=== PATIENT | female | born 1970 | race Caucasian/White ===

== ENCOUNTER 2017-08-10 10:45 | Emergency (ER) | payer MEDICAID, OTHER ==
[~2017-08-10] VITALS: Wt 72.0 kg
[~2017-08-10 10:45] MED LIST: ETOMIDATE 20 MG INJ ONE; LIDOCAINE 100 MG SYRINGE ONE; ROCURONIUM 50 MG INJ ONE
[2017-08-10] MEDS ORDERED: SOD CHLORIDE 0.9% 500 ML IV STA (11:13)
[2017-08-10 11:56] LABS: BASOPHIL # 0.1 10^3/ul (0.0-0.1); BASOPHILS % 0.8 % (0.0-2.0); EOSINOPHILS % 0.4 % (0.0-7.0); HEMATOCRIT 39.1 % (37.0-47.0); HEMOGLOBIN 12.6 g/dl (12.0-16.0); LYMPHOCYTES # 0.7 10^3/ul (0.8-2.9); LYMPHOCYTES % 9.1 % (15.0-51.0); MEAN CORPUSCULAR HEMOGLOBIN 31.1 pg (29.0-33.0); MEAN CORPUSCULAR HGB CONC 32.2 g/dl (32.0-37.0); MEAN CORPUSCULAR VOLUME 96.5 fl (82.0-101.0); MEAN PLATELET VOLUME 10.9 fl (7.4-10.4); MONOCYTE # 0.8 10^3/ul (0.3-0.9); MONOCYTES % 10.4 % (0.0-11.0); NEUTROPHIL # 6.1 10^3/ul (1.6-7.5); NEUTROPHILS % 78.8 % (39.0-77.0); PLATELET COUNT 191 10^3/UL (140-415); RED BLOOD COUNT 4.05 10^6/ul (4.20-5.40); RED CELL DISTRIBUTION WIDTH 17.5 % (11.5-14.5); WHITE BLOOD COUNT 7.8 10^3/ul (4.8-10.8)
[2017-08-10 11:57] LABS: ALANINE AMINOTRANSFERASE 43 IU/L (13-69); ALBUMIN 3.4 g/dl (3.3-4.9); ALBUMIN/GLOBULIN RATIO 0.82; ALKALINE PHOSPHATASE 227 IU/L (42-121); ANION GAP 13 (8-16); ASPARTATE AMINO TRANSFERASE 64 IU/L (15-46); BILIRUBIN,INDIRECT 1.5 mg/dl (0-1.1); BILIRUBIN,TOTAL 1.5 mg/dl (0.2-1.3); BLOOD UREA NITROGEN 9 mg/dl (7-20); CALCIUM 9.2 mg/dl (8.4-10.2); CARBON DIOXIDE 29 mmol/L (21-31); CHLORIDE 99 mmol/L (97-110); CREATININE 0.96 mg/dl (0.44-1.00); GLUCOSE 83 mg/dl (70-220); POTASSIUM 3.7 mmol/L (3.5-5.1); SODIUM 137 mmol/L (135-144); TOTAL PROTEIN 7.5 g/dl (6.1-8.1)
[2017-08-10 12:09] LABS: TROPONIN-I 0.013 ng/ml (0.00-0.12)
[2017-08-10 12:12] LABS: ACETAMINOPHEN < 10.0 ug/ml (10.0-30.0); SALICYLATE < 1.0 mg/dl (5.0-30.0)
[2017-08-10 12:13] LABS: T3 UPTAKE 39.8 % (23.5-40.5)
[2017-08-10 12:25] LABS: ETHANOL < 10.0 mg/dl
[2017-08-10] MEDS ORDERED: SOD CHLORIDE 0.9% 1,000 ML IV ONE ×3 (12:30→17:30)
[2017-08-10 13:04] LABS: OPIATES Negative (NEGATIVE)
[2017-08-10 13:06] LABS: ADD UMIC YES; UR ASCORBIC ACID 40 mg/dL (NEGATIVE); UR BACTERIA FEW /HPF (NONE SEEN); UR BILIRUBIN (Dip) NEGATIVE (NEGATIVE); UR BLOOD (Dip) NEGATIVE (NEGATIVE); UR CLARITY SLIGHTLY CLOUDY (CLEAR); UR COLOR AMBER (YELLOW); UR GLUCOSE (Dip) NEGATIVE (NEGATIVE); UR KETONES (Dip) NEGATIVE (NEGATIVE); UR LEUKOCYTE ESTERASE (Dip) NEGATIVE Leu/ul (NEGATIVE); UR MUCUS MANY /HPF (NONE SEEN); UR NITRITE (Dip) NEGATIVE (NEGATIVE); UR RBC 2 /HPF (0-5); UR SQUAMOUS EPITHELIAL CELL FEW /HPF (FEW); UR TOTAL PROTEIN (Dip) 1+ mg/dl (NEGATIVE); UR UROBILINOGEN (Dip) 2+ mg/dL (NEGATIVE)
[2017-08-10 13:11] LABS: BARBITURATES Negative (NEGATIVE); BENZODIAZEPINES Negative (NEGATIVE); CANNABINOIDS Negative (NEGATIVE); COCAINE Negative (NEGATIVE)
[2017-08-10] MEDS ORDERED: SOD CHLORIDE 0.9% 1,000 ML IV SCH (15:23)
[2017-08-10] MEDS ORDERED: HYDROCODONE/APAP (5/325) TAB PO PRN (15:30)
[2017-08-10] MEDS ORDERED: NITROGLYCERIN (SL) 0.4 MG TAB SL PRN (15:30)
[2017-08-10] MEDS ORDERED: ONDANSETRON 4 MG INJ IV PRN ×2 (15:30→16:00)
[2017-08-10] MEDS ORDERED: NA PHOSPHATE/BIPHOS 133 ML ENEMA PR PRN (15:30)
[2017-08-10] MEDS ORDERED: DOCUSATE SODIUM 100 MG CAP PO PRN (15:30)
[2017-08-10] MEDS ORDERED: NACL 0.9% 3 ML SYG IV SCH (15:30)
[2017-08-10] MEDS ORDERED: ACETAMINOPHEN 325 MG TAB PO PRN ×2 (15:30)
[2017-08-10] MEDS ORDERED: morphine 2 MG INJ IV PRN (15:30)
[2017-08-10] MEDS ORDERED: hydrALAzine 20 MG INJ IV PRN (15:30)
[2017-08-10] MEDS ORDERED: MAGNESIUM HYDROXIDE 30ML CUP PO PRN (15:30)
[2017-08-10] MEDS ORDERED: ALBUTEROL/IPRATROPIUM (NEB) 3 ML AMP HHN PRN (15:30)
[2017-08-10] MEDS ORDERED: LORAZEPAM 2 MG INJ ONE (15:34)
[2017-08-10] MEDS ORDERED: LORAZEPAM 2 MG INJ IV ONE (16:00)
[2017-08-10] MEDS ORDERED: LEVOFLOXACIN 750MG/D5W (PMX) 150 ML IVPB SCH (16:00)
[2017-08-10] MEDS ORDERED: LEVETIRACETAM 1000 MG (PMX) 100 ML IVPB SCH (16:00)
[2017-08-10] MEDS ORDERED: LEVETIRACETAM 500 MG (PMX) 100 ML IVPB ONE (16:00)
--- NOTE | 2017-08-10 16:24 | RADRPT ---
PROCEDURE: CT Brain without contrast. CLINICAL INDICATION: Seizure, head injury TECHNIQUE: Routine CT scan of the brain was performed on a high resolution multi detector scanner without intravenous contrast. One or more of the following dose reduction techniques were used: Auto mated exposure control; Adjustment of the mA and/or kV according to patient size; Use of iterative r econstruction technique. CTDI = 44 mGy. DLP = 630 mGy-cm. COMPARISON: CT brain 10/03/2009 FINDINGS: Hemorrhage: Acute epidural hematoma is present overlying the left frontal and parietal lobes measuri ng up to 12 mm in thickness. This produces minimal local mass effect on the underlying brain parench yma without midline shift or herniation. Acute ischemic changes: No evidence of acute ischemic changes. Parenchymal volume: Within normal limits for age. Ventricular system: Concordant with parenchymal volume. Chronic changes: Mild chronic-appearing microvascular ischemic changes of the supratentorial white m atter. Atherosclerotic calcifications of the cavernous portions of both internal carotid arteries ar e present. Extracranial soft tissues: Unremarkable. Calvarium: No fractures. Paranasal sinuses: Visualized paranasal sinuses are clear. Mastoid air cells: Visualized mastoid air cells are clear. IMPRESSION: Acute epidural hematoma overlying the left frontal and parietal lobes measuring up to 12 mm in thick ness. This produces minimal local mass effect on the underlying brain parenchyma without midline sh ift or herniation. Mild chronic-appearing microvascular ischemic changes of the supratentorial white matter are unchang ed. Results were discussed with [place] Muñ[place] by telephone 08/10/2017 4:19:[address] Ortiz cespedes RPTAT: AADD .Ortiz Morley MD, MD Date Time Electronically viewed and signed by .Ortiz Morley MD, on 08/10/2017 16:23 .B/
[2017-08-10] MEDS ORDERED: LORAZEPAM 2 MG INJ IV PRN ×2 (16:30→22:00)
--- NOTE | 2017-08-10 16:58 | HP ---
DATE OF ADMISSION: 08/10/2017 CHIEF COMPLAINT: Altered mental status. Seizure. HISTORY OF PRESENT ILLNESS: This is a 47-year-old female with a past medical history cirrhosis, noncompliant with lactulose medications for the last 2-3 days, history of anxiety and prior drug abuse, who presented from home after experiencing seizure activity per who appeared to witness at least 2 seizures at home. Each seizure lasted about a minute. When he found her after the first one, she was found face down in the bedroom I believe with blood coming out of her mouth, most likely secondary to tongue biting. She had some confusion afterwards. Her states that there was also an empty bottle of Neurontin found next to the bed as well. No prior history of any seizures. No complaints of any diarrhea or constipation, nausea, vomiting, fever or chills. No upper or lower GI bleeding. Again, she had 2 more seizures at home as well; so a total of 3 and 1 in the ER today. She also had seizure activity as well. When she came to the ER today, she was found with a normal white blood cell count. Lactic acid was elevated at 5.5. She had altered mental status and confusion. PAST MEDICAL HISTORY: Above. ALLERGIES: PENICILLIN. MEDICATIONS: Apparently she is taking lactulose at home but has not been taking it for the last 2-3 days per her . PAST SURGICAL HISTORY: None. FAMILY HISTORY: Unknown. SOCIAL HISTORY: Positive for amphetamines in her system, and also she smokes cigarettes, unable to fully quantify how much. She denies alcohol use. PHYSICAL EXAMINATION: VITAL SIGNS: Today, T-max 98.8, pulse 84, respirations 20, blood pressure 120/54, and sating at 97 percent on room air. GENERAL: The patient is lying in bed. Skin appears to be jaundiced. She has minimal responsiveness to sternal rub. Some dry blood noted around the mouth. NECK: Supple. No thyromegaly. HEENT: Unable to fully assess. LUNGS: Clear to auscultation bilaterally. CARDIAC: S1, S2 heard. No rubs, gallops. ABDOMEN: Soft, nontender, nondistended. Normal bowel sounds. No rebound or guarding. MUSCULOSKELETAL: No lower extremity edema bilaterally. Neurologic unable to fully assess. Negative musculoskeletal. No lower extremity edema bilaterally. LABS: Comprehensive metabolic panel shows a total bilirubin of 1.5. AST is a little high at 64. Troponins negative x1. The rest of the comprehensive metabolic panel is normal. Thyroid panel appears normal. Lactic acid is 5.5. U tox is positive for amphetamine. UA shows negative nitrites, negative leukocyte esterase, few bacteria. CBC is normal. Head CT is pending. ASSESSMENT/PLAN: This is a 47-year-old female coming in with altered mental status and seizure activity and signs of possible Neurontin versus phentermine overdose. 1. Seizures and altered mental status. For now because the patient could be altered from a combination of seizure activity and also not taking her lactulose, put her in intensive care unit at least for a few hours and monitor her. Check ammonia level. Check TSH, A1c, and lipid panel. Put her on Keppra intravenously and also Ativan p.r.n. for any seizure activity. Do neuro checks as well. Get a neurology consult and get an EEG as well. Also, give her aggressive intravenous fluid hydration. 2. History of cirrhosis. Again, for now, check an ammonia level. Put her back on the lactulose medications when she awakes. 3. Possible amphetamine or Neurontin toxicity. Again, monitor for signs of withdrawal. She is having positive seizures that could be secondary to the overdose of these medications. Again, neuro checks and intravenous fluids aggressively. 4. Gastrointestinal prophylaxis. She will be on a proton pump inhibitor. 5. Deep vein thrombosis prophylaxis, sequential compression devices. Dictated By: Tulio Kruger MD /kendall/mariana /Document#: [id number]
[2017-08-10] MEDS ORDERED: MANNITOL 20% 500 ML IV ONE (17:00)
[2017-08-10] MEDS ORDERED: PROPOFOL 100 ML ONE (17:16)
[2017-08-10] MEDS ORDERED: PROPOFOL 100 ML IV ONE (17:30)
[2017-08-10] MEDS ORDERED: LACTULOSE 30ML CUP PO SCH (18:00)
--- NOTE | 2017-08-10 18:33 | ERA ---
ER Documentation Chief Complaint Date/Time DATE: 08/10/17 TIME: 18:20 Chief Complaint ALTERED MENTAL STATUS FROM POSSIBLE OVERDOSE UNK MED. NO TRAUMA POSS SZ HPI This 47-year-old female is brought in by paramedics for being found altered. There was drug paraphernalia including methamphetamine items. There was also an empty bottle of gabapentin near the patient. Go to the was not present there has been a questional history of a seizure. Patient does not have a seizure disorder. No mention of suicidal ideations or trauma. Patient herself is unable to provide adequate history but does answer some questions. ROS Unobtainable secondary to clinical condition Medications Home Meds No Active Prescriptions or Reported Meds Allergies Allergies: Coded Allergies: Penicillins (Verified Allergy, Unknown, 11/13/08) PMhx/Soc Medical and Surgical Hx: Unable to obtain History of Surgery: Yes (HERNIA) Anesthesia Reaction: No Hx Neurological Disorder: No Hx Cardiac Disorders: No Hx Psychiatric Problems: No Hx Miscellaneous Medical Probl: No Hx Alcohol Use: Yes Hx Substance Use: Yes Hx Tobacco Use: Yes Smoking Status: Current every day smoker Physical Exam Vitals Vital Signs Date Time Temp Pulse Resp B/P Pulse Ox O2 Delivery O2 Flow Rate FiO2 08/10/17 17:30 83 22 100 100 08/10/17 16:32 98.8 86 20 128/67 93 Room Air 08/10/17 15:30 98.8 86 20 127/61 93 Room Air 08/10/17 14:22 98.8 84 20 128/54 93 Room Air 08/10/17 13:00 98.8 88 20 136/57 97 08/10/17 10:51 98.8 84 20 130/72 97 Physical Exam Const: [] Mild distress, Head: Atraumatic, Eyes: Normal Conjunctiva EOMI, PERRLA ENT: Normal External Ears, Nose and Mouth. Her membranes without any blood or fluid. Neck: Full range of motion.. No deformities. Resp: Clear to auscultation bilaterally Cardio: Regular tachycardia, no murmurs Abd: Soft, obvious tenderness, r, non distended. Normal bowel sounds Skin: No petechiae or rashes Back: No midline or flank tenderness Ext: No cyanosis, or edema Neur: Awake and alert, answering some questions, moves all 4 extremities purposefully. Psych: Euphoric and mildly agitated, speaking consistently, most of her speech is irrelevant but not nonsensical, Result Diagram: 08/10/17 1125 08/10/17 1125 Results 24 hrs Laboratory Tests Test 08/10/17 11:25 08/10/17 12:25 White Blood Count 7.810^3/ul Red Blood Count 4.0510^6/ul Hemoglobin 12.6g/dl Hematocrit 39.1% Mean Corpuscular Volume 96.5fl Mean Corpuscular Hemoglobin 31.1pg Mean Corpuscular Hemoglobin Concent 32.2g/dl Red Cell Distribution Width 17.5% Platelet Count 82261^3/UL Mean Platelet Volume 10.9fl Neutrophils % 78.8% Lymphocytes % 9.1% Monocytes % 10.4% Eosinophils % 0.4% Basophils % 0.8% Nucleated Red Blood Cells % 0.0/100WBC Neutrophils # 6.110^3/ul Lymphocytes # 0.710^3/ul Monocytes # 0.810^3/ul Eosinophils # 0.010^3/ul Basophils # 0.110^3/ul Nucleated Red Blood Cells # 0.010^3/ul Sodium Level 137mmol/L Potassium Level 3.7mmol/L Chloride Level 99mmol/L Carbon Dioxide Level 29mmol/L Anion Gap 13 Blood Urea Nitrogen 9mg/dl Creatinine 0.96mg/dl Glucose Level 83mg/dl Lactic Acid Level 5.5mmol/L Calcium Level 9.2mg/dl Total Bilirubin 1.5mg/dl Direct Bilirubin 0.00mg/dl Indirect Bilirubin 1.5mg/dl Aspartate Amino Transf (AST/SGOT) 64IU/L Alanine Aminotransferase (ALT/SGPT) 43IU/L Alkaline Phosphatase 227IU/L Troponin I 0.013ng/ml Total Protein 7.5g/dl Albumin 3.4g/dl Globulin 4.10g/dl Albumin/Globulin Ratio 0.82 Free Thyroxine 1.30ng/dl Free Thyroxine Index 2.99ug/ml Thyroxine (T4) 7.5ug/dl Triiodothyronine (T3) Uptake 39.8% Salicylates Level < 1.0mg/dl Acetaminophen Level < 10.0ug/ml Ethyl Alcohol Level < 10.0mg/dl Urine Color KAREN Urine Clarity SLIGHTLY CLOUDY Urine pH 6.0 Urine Specific [place] 1.020 Urine Ketones NEGATIVEmg/dL Urine Nitrite NEGATIVEmg/dL Urine Bilirubin NEGATIVEmg/dL Urine Urobilinogen 2+mg/dL Urine Leukocyte Esterase NEGATIVELeu/ul Urine Microscopic RBC 2/HPF Urine Microscopic WBC 6/HPF Urine Squamous Epithelial Cells FEW/HPF Urine Bacteria FEW/HPF Urine Mucus MANY/HPF Urine Hemoglobin NEGATIVEmg/dL Urine Glucose NEGATIVEmg/dL Urine Total Protein 1+mg/dl Urine Opiates Screen Negative Urine Barbiturates Negative Urine Amphetamines Screen POSITIVE Urine Benzodiazepines Screen Negative Urine Cocaine Screen Negative Urine Cannabinoids Negative Current Medications Medications (Trade) Dose Ordered Sig/[place] Route PRN Reason Start Time Stop Time Status Last Admin Dose Admin Sodium Chloride 500 ml @ 500 mls/hr Q1H STAT IV 08/10/17 11:13 08/10/17 12:12 DC 08/10/17 11:31 Sodium Chloride 1,000 ml @ 1,000 mls/hr Q1H ONCE IV 08/10/17 12:30 08/10/17 13:29 DC 08/10/17 13:00 Sodium Chloride (NS) 1,000 ml @ 1,000 mls/hr Q1H ONCE IV 08/10/17 12:30 08/10/17 13:29 DC 08/10/17 13:01 Ondansetron HCl (Zofran Inj) 4 mg BRIDGE ORDER PRN IV NAUSEA AND/OR VOMITING 08/10/17 15:30 08/10/17 15:44 DC Acetaminophen (Tylenol Tab) 650 mg ER BRIDGE PRN PO MILD PAIN/FEVER 08/10/17 15:30 08/10/17 15:44 DC IV Flush (NS 3 ml) 3 ml PER PROTOCOL IV 08/10/17 15:30 Ondansetron HCl (Zofran Inj) 4 mg Q6H PRN IV NAUSEA AND/OR VOMITING 08/10/17 16:00 Acetaminophen (Tylenol Tab) 650 mg Q6H PRN PO PAIN LEVEL 1-3 OR FEVER 08/10/17 15:30 Acetaminophen/ Hydrocodone Bitart (Basehor (5/325)) 1 tab Q6H PRN PO MODERATE PAIN LEVEL 4-6 08/10/17 15:30 Morphine Sulfate (morphine) 2 mg Q4H PRN IV SEVERE PAIN LEVEL 7-10 08/10/17 15:30 Docusate Sodium (Colace) 100 mg Q12H PRN PO CONSTIPATION 08/10/17 15:30 Magnesium Hydroxide (Milk Of Mag) 30 ml DAILY PRN PO CONSTIPATION 08/10/17 15:30 Sodium Biphosphate/ Sodium Phosphate (Fleet Enema) 133 ml DAILY PRN TN CONSTIPATION 08/10/17 15:30 Pantoprazole (Protonix Tab) 40 mg DAILY@06 PO 08/11/17 06:00 Heparin Sodium (Porcine) (Heparin (5000 Units/0.5 ml)) 5,000 unit Q12 SC 08/10/17 21:00 08/10/17 21:00 DC Lorazepam 0.5 mg 0.5 mg Q6H PRN IV ANXIETY 08/10/17 22:00 08/10/17 22:00 DC Sodium Chloride (NS) 1,000 ml @ 150 mls/hr Q6H40M IV 08/10/17 15:23 08/10/17 16:51 Albuterol/ Ipratropium 3 ml 3 ml Q4H RESP THERAPY PRN HHN SHORTNESS OF BREATH 08/10/17 15:30 Levofloxacin/ Dextrose (Levaquin 750 Mg/ D5W 150 ml (Pmx)) 150 ml @ 100 mls/hr DAILY IVPB 08/10/17 16:00 08/10/17 16:50 Hydralazine HCl (Apresoline) 10 mg Q6H PRN IV ELEVATED BLOOD PRESSURE 08/10/17 15:30 Nitroglycerin 1 tab 1 tab Q5M PRN SL ANGINA 08/10/17 15:30 Levetiracetam (Keppra 1,000mg/ 100ml (Pmx)) 100 ml @ 400 mls/hr Q12 IVPB 08/10/17 16:00 08/10/17 16:49 Lorazepam (Ativan) 2 mg STK-MED ONCE .ROUTE 08/10/17 15:34 08/10/17 15:35 DC Lorazepam 2 mg 2 mg ONCE ONCE IV 08/10/17 16:00 08/10/17 16:01 DC 08/10/17 16:12 Levetiracetam (Keppra 500 Mg/ 100ml (Pmx)) 100 ml @ 400 mls/hr ONCE ONCE IVPB 08/10/17 16:00 08/10/17 16:00 DC Lorazepam (Ativan) 1 mg Q1H PRN IV SEIZURES 08/10/17 16:30 Lactulose 20 gm 20 gm Q6 PO 08/10/17 18:00 Mannitol 500 ml @ 0 mls/hr Q0M ONCE IV 08/10/17 17:00 08/10/17 17:02 DC 08/10/17 17:49 Propofol 100 ml @ ud STK-MED ONCE .ROUTE 08/10/17 17:16 08/10/17 17:17 DC Propofol 100 ml @ 0 mls/hr TITRATE ONCE IV 08/10/17 17:30 08/10/17 17:31 DC 08/10/17 17:50 Sodium Chloride (NS) 1,000 ml @ 1,000 mls/hr Q1H ONCE IV 08/10/17 17:30 08/10/17 18:29 08/10/17 17:50 Procedures/MDM Traumatic epidural hematoma with methamphetamine use and possible gabapentin overdose. Patient initially came in altered with some signs of intoxication. She is given IV fluid and workup for causes of altered mental status were undertaken. Patient remained stable on a monitor with mild tachycardia consistent with methamphetamine use. One arrived to provide additional history that he had heard a thud in the other room and believes the patient. He noticed her to have brief seizure lasting less than 1 minute. Does not believe the patient wanted to take her life or harm herself in any way and is unsure if she actually took the gabapentin pills from the empty bottle. The patient did have an additional seizure in the room and was given 2 mg of Ativan. I also loaded her with a gram of Keppra. She was given a total of 2.5 L of normal saline in the emergency room. Initially after seizure in the emergency room she is was somewhat postictal but was still somewhat responsive. Her mental status deteriorated. Repeat neuro exam patient still has normal reactive pupils movement of all 4 extremities responding appropriately or following commands. She was intubated for airway protection hyperventilated. She darty been reduced to 30. I spoke with trauma doctor at [facility] excepts transfer of the patient. Propofol drip to prevent seizures as sedate her on the ventilator. ET intubation note: Patient was pretreated with bag mask ventilation and RSI was used with 20 mg of etomidate 100 mg of rocuronium. She is quickly easily intubated with a 7.5 ET tube through visualized vocal cords afterwards the head of the bed was elevated back to 40. She was saturating 100% after the procedure and had good end-tidal CO2 color change. No complications, tolerated well Critical care time greater than 35 minutes: This is not included billable procedures. This does include treatment of traumatic brain bleed with some mass -effect, ventilator management, multiple suspicious bedside to reassess status, chart review, discussion with transfer staff. He had interpretation: Left-sided epidural hematoma with very mild mass-effect and no midline shift. Patient does have somewhat advanced atrophy. No skull fracture. Departure Diagnosis: Primary Impression: Epidural hematoma Additional Impressions: New onset seizure Methamphetamine abuse Lactic acidosis Head injury Condition: Critical TERENCE LOPEZ DO Aug 10, 2017 18:32
[2017-08-10 18:45] VITALS: BP 127/62; PULSE 68; TEMP 96.5
--- NOTE | 2017-08-10 18:55 | RADRPT ---
PROCEDURE: XR Chest. CLINICAL INDICATION: Post intubation TECHNIQUE: Single frontal view of the chest was obtained COMPARISON: 11/13/2008 FINDINGS: Endotracheal tube the tip projecting 3.4 cm above the rachelle. Low lung volumes with bibasilar atelectasis. No pleural effusion or pneumothorax. No consolidation. Stable cardiac silhouette. Calcified aortic arch suggestive of chronic systemic hypertension. No acute osseous abnormality. IMPRESSION: Low lung volumes with bibasilar atelectasis. RPTAT: EE Lilibeth Christianson Physician Date Time Electronically viewed and signed by Lilibeth Christianson Physician on 08/10/2017 18:54 /
[2017-08-10 19:30] VITALS: RESP 22
[2017-08-10] MEDS ORDERED: HEPARIN 5,000 UNIT/0.5 ML VIAL SC SCH (21:00)
[2017-08-11] MEDS ORDERED: PANTOPRAZOLE (EC) 40 MG TAB PO SCH (06:00)
== END 2017-08-10 20:15 | disposition short-term general hospital (02) ==
LOC: E/R 10:45
DX: S06.4X0A Epidural hemorrhage without loss of consciousness, initial encounter (principal); R56.9 Unspecified convulsions; F15.20 Other stimulant dependence, uncomplicated; E87.2 Acidosis; F17.210 Nicotine dependence, cigarettes, uncomplicated; X58.XXXA Exposure to other specified factors, initial encounter; Y92.9 Unspecified place or not applicable
CPT/HCPCS: 31500; 36415; 70450; 71010; 80053; 80306; 80307; 81001; 82140; 82962; 83605; 84436; 84439; 84479; 84484; 85025; 93005; 94002; 96374; 96375; J1953; J1956; J2001; J2060; J7030; J7040; P9612; X6522; Z7502; Z7610